=== PATIENT | female | born 1945 ===

== ENCOUNTER → 2018-05-08 14:46 | Emergency (ER) | payer MEDICARE, OTHER ==
[~2018-05-08 14:46] MED LIST: Amoxicillin/Clavulanate TAB* 875 MG PO ONE; Cephalexin CAP* 500 MG PO ONE; HYDROcodone/ACETAMIN 5-325 MG* 1 TAB PO ONE; Lidocaine 2% EPI 1:200000 MPF*10-20 ML VIAL ONE; Tetan/Diph/Pertus SYR(Tdap)* 0.5 ML SYR(BOOSTRIX) use SYR IM ONE
--- OUTSIDE RECORDS SUMMARY | 2018-05-08 15:45 | XMS REPORT | Continuity of Care Document ---
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 Honey Estrada MD Primary Care Physician Unavailable Payers Type Date Identification Numbers Payment Provider Subscriber Effective: 2009 Policy Number: [id number] Medicare Malena Thomason PayID: [id number] [address] [place] [address] Policy Number: [id number] [employer] Malena Thomason PayID: [id number] [address] [place] [address] Advance Directives Description No Information Available Problems Date Description Provider Status Onset: 09/05/2017 Obstructive sleep apnea Maryjo Rodriguez DNP, RN, Active syndrome [employer] Onset: 11/13/2017 Hypoxemia Maryjo Rodriguez DNP, RN, Active [employer] Onset: 11/13/2017 Hypersomnia Maryjo Rodriguez DNP, RN, Active [employer] Onset: 11/13/2017 Body mass index 40+ - severely Maryjo Rodriguez DNP, RN, Active obese [employer] Family History Date Family Member(s) Problem(s) Comments Father due to Heart () - Complications from pacemaker Father Heart Disease Father Pacemaker Mother due to Unknown () Mother Heart Disease Mother Stroke Siblings 2 2 sisters Social History Type Date Description Comments Sex Unknown Marital Status 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 Tobacco Use Start: Unknown Never Smoked Cigarettes Smoking Status Reviewed: 04/30/18 Never Smoked Cigarettes ETOH Use Denies alcohol use Tobacco Use Start: Unknown Patient has never smoked Recreational Drug Use Denies Drug Use Exercise Type/Frequency Exercises sporadically Barn chores every day Allergies, Adverse Reactions, Alerts Date Description Reaction Status Severity Comments 08/29/2017 Sulfa Active 11/13/2017 Alcohol Anaphylaxis, Small amt- stuffy, Active Severe runny nose 08/29/2017 NKDA Inactive Medications Medication Date Status Form Strength Qnty SIG Indications Ordering Provider Pravastatin Active Tablets 10mg take one Unknown Sodium 000 tablet by mouth at bedtime Irbesartan Active Tablets 150mg 1 by mouth Unknown 000 every day It Works Active Powder qd Unknown Greens 000 Oxybutynin Active Tablets ER 5mg 1 by mouth Unknown Chloride ER 000 24HR one time per day Vitamin D3 Active 2000Iu 1 po daily Unknown 000 Immunizations Description No Information Available Vital Signs Date Vital Result Comment 04/30/2018 3:42pm Height 62 inches 5'2" Weight 282.00 lb with shoes Heart Rate 81 /min BP Systolic Sitting 130 mmHg Lue lg cuff BP Diastolic Sitting 90 mmHg Lue lg cuff BP Systolic Standing 136 mmHg Lue lg cuff BP Diastolic Standing 88 mmHg Lue lg cuff Respiratory Rate 17 /min BMI (Body Mass Index) 51.6 kg/m2 03/19/2018 12:49pm Height 62 inches 5'2" Weight 275.00 lb with shoes Heart Rate 80 /min BP Systolic Sitting 134 mmHg lue large cuff BP Diastolic Sitting 80 mmHg lue large cuff BP Systolic Standing 132 mmHg lue large cuff BP Diastolic Standing 80 mmHg lue large cuff BMI (Body Mass Index) 50.3 kg/m2 03/19/2018 12:38pm Height 62 inches 5'2" Weight 276.00 lb with shoes BMI (Body Mass Index) 50.5 kg/m2 01/14/2018 2:25pm Height 62 inches 5'2" Weight 280.12 lb Heart Rate 82 /min BP Systolic Sitting 126 mmHg Left forearm BP Diastolic Sitting 82 mmHg Left forearm Respiratory Rate 16 /min O2 % BldC Oximetry 94 % BMI (Body Mass Index) 51.2 kg/m2 11/13/2017 8:48am Height 62 inches 5'2" Weight 270.50 lb Heart Rate 74 /min BP Systolic Sitting 122 mmHg Lue large cuff BP Diastolic Sitting 80 mmHg Lue large cuff Respiratory Rate 16 /min O2 % BldC Oximetry 94 % On Ra BMI (Body Mass Index) 49.5 kg/m2 09/05/2017 11:17am Height 62 inches 5'2" Weight 271.00 lb Heart Rate 84 /min BP Systolic Sitting 126 mmHg BP Diastolic Sitting 80 mmHg Respiratory Rate 14 /min O2 % BldC Oximetry 95 % BMI (Body Mass Index) 49.6 kg/m2 09/05/2017 11:09am Height 62 inches 5'2" 08/29/2017 7:53am Height 62 inches 5'2" Weight 269.00 lb Heart Rate 76 /min BP Systolic Sitting 116 mmHg BP Diastolic Sitting 80 mmHg Respiratory Rate 14 /min Peak Flow Meter 92 BMI (Body Mass Index) 49.2 kg/m2 Neck Circumference in inches 17 Results Test Date Facility Test Result H/L Range Note CBC Auto Diff 01/14/2018 [facility] White Blood 7.9 10^3/uL N 3.5-10.[address] [place] [address] [phone] Red Blood Count 4.06 10^6/uL N 4.00-5.40 Hemoglobin 13.0 g/dL N 12.0-16.0 Hematocrit 38 % N 35-47 Mean Corpuscular Volume 94 fL N 80-97 Mean Corpuscular Hemoglobin 32 pg High 27-31 Mean Corpuscular HGB Conc 34 g/dL N 31-36 Red Cell Distribution Width 14 % N 10.5-15 Platelet Count 254 10^3/uL N 150-450 Mean Platelet Volume 7.9 um3 N 7.4-10.4 Abs Neutrophils 5.4 10^3/uL N 1.5-7.7 Abs Lymphocytes 1.6 10^3/uL N 1.0-4.8 Abs Monocytes 0.6 10^3/uL N 0-0.8 Abs Eosinophils 0.2 10^3/uL N 0-0.6 Abs Basophils 0.1 10^3/uL N 0-0.2 Abs Nucleated RBC 0 10^3/uL Granulocyte % 68.0 % N 38-83 Lymphocyte % 20.1 % Low 25-47 Monocyte % 8.0 % High 0-7 Eosinophil % 3.1 % N 0-6 Basophil % 0.8 % N 0-2 Nucleated Red Blood Cells % 0.1 Laboratory test 01/14/2018 [facility] Ferritin 71.1 ng/mL N 11 -307 [address] [place] [address] [phone] Iron & Iron Binding 01/14/2018 [facility] Iron 80 g/dL N 50- 212 [address] [place] [address] [phone] Unsaturated Iron Binding 234 g/dL Total Iron Binding Capacity 314 g/dL N 250-450 Transferrin 224 mg/dL N 203-362 % Iron Saturation 25 % N 15-55 Laboratory test 01/14/2018 [facility] Magnesium 2.1 mg/dL N 1.9-2.7 finding [address] [place] [address] [phone] TSH (Thyroid Stim Horm) 1.77 mcIU/mL N 0.34-5.60 Vitamin B12 275 pg/mL N 180-914 1 Vitamin D 1,25 01/14/2018 [facility] Vitamin D 12.4 ng/mL Low 20-50 And Vitamin D,2 [facility] [address] [place] [address] [phone] Vitamin D, 1,25 Dihydroxy 58 pg/mL 18-78 2 1 Normal Range 180 to 914 Indeterminate Range 145 to 180 Deficient Range <145 2 ADDITIONAL INFORMATION This test was developed and its performance characteristics determined by [facility] in a manner consistent with CLIA requirements. This test has not been cleared or approved by the U.S. Food and Drug Administration. Test Performed by: [facility] [address] [place] [address] Procedures Date Code Description Status 04/08/2018 44510 Carotid Doppler,Bilateral Completed 04/01/2018 55697 ECHO Transthoracic, Real-Time 2D With Doppler And Color Completed Flow 04/01/2018 98983 ECHO Transthoracic, Real-Time 2D With Doppler And Color Completed Flow 03/19/2018 42286 EKG Tracing & Interpretation Completed 08/31/2017 31851 Sleep Study Unattended,HRT Rate,Oxygen Sat,Resp Completed Effort/Airflow Encounters Type Date Location Provider Dx Diagnosis Office Visit 03/19/2018 [facility] Mark Veloz R01.1 Cardiac murmur, 1:00p Of Reji Chacon M.D. unspecified R09.89 Oth symptoms and signs involving the circ and resp systems Office Visit 01/14/2018 [facility] G47.33 Obstructive sleep 3:00p [facility] Rodriguez RN, apnea (adult) [facility] (pediatric) G47.14 Hypersomnia due to medical condition R09.02 Hypoxemia R53.83 Other fatigue R01.1 Cardiac murmur, unspecified E66.01 Morbid (severe) obesity due to excess calories Z68.43 Body mass index (BMI) 50-59.9 , adult Office Visit 11/13/2017 [facility] G47.33 Obstructive sleep 9:00a [facility] Rodriguez RN, apnea (adult) [facility] (pediatric) G47.14 Hypersomnia due to medical condition R09.02 Hypoxemia Z68.42 Body mass index (BMI) 45.0-49.9, adult Office Visit 09/05/2017 [facility] G47.33 Obstructive sleep 11:15a [facility] Rodriguez RN, apnea (adult) [facility] (pediatric) G47.14 Hypersomnia due to medical condition R09.02 Hypoxemia Office Visit 08/29/2017 8:00a [facility] Renea, R06.83 [facility] E66.09 Other obesity due to excess calories Z68.42 Body mass index (BMI) 45.0-49.9, adult Office Visit 11/14/2012 2:40p Neurosurgery Jose Juan Esteban 721.3 Spondylosis Services [facility] Reji Almonte M.D. Lumbar W/O Myelopathy Plan of Treatment 04/30/2018 - Mark Chacon M.D.R01.1 Cardiac murmur, unspecifiedFollow up:1 yearRecommendations:Start Aspirin 81 mg a dayI35.0 Nonrheumatic aortic (valve) [id number] Essential (primary) hypertension
--- NOTE | 2018-05-08 18:38 | ED ---
Bite Injury/Animal - HPI Summary HPI Summary: Patient complains of laceration to right cheek and right supraorbital hematoma after being bit by a horse today. Denies any other injuries, pain, symptoms. Tetanus status unclear. Medical history is HTN, HDL. No anti-coag. Bleeding controlled. - History of Current Complaint Chief Complaint: EDLacSutureRecheck Stated Complaint: BIT BY A HORSE Hx Obtained From: Patient Onset of Injury: Happened hours ago Type of Bite: Animal Has Animal Been Immunized?: Yes Severity Initially: Moderate Severity Currently: Moderate Pain Intensity: 7 Pain Scale Used: 0-10 Numeric Character: Abrasion/Laceration Associated Signs And Symptoms: Positive: Negative - Allergies/Home Medications Allergies/Adverse Reactions: Allergies Allergy/AdvReac Type Severity Reaction Status Date / Time alcohol Allergy Anaphylatic Verified 05/08/18 14:50 Shock Sulfa (Sulfonamide Allergy Difficulty Verified 05/08/18 14:50 Antibiotics) Breathing PMH/Surg Hx/FS Hx/Imm Hx Endocrine/Hematology History: Denies: Hx Anticoagulant Therapy Cardiovascular History: Denies: Hx Cardiac Arrest, Hx Pacemaker/ICD History: Denies: Hx Dialysis Sensory History: Denies: Hx Hearing Aid Neurological History: Denies: Hx CVA, Other Neuro Impairments/Disorders Psychiatric History: Denies: Hx Panic Disorder - Cancer History Hx Chemotherapy: No Hx Radiation Therapy: No - Surgical History Surgery Procedure, Year, and Place: D&C - Immunization History Immunizations Up to Date: Yes Infectious Disease History: No Infectious Disease History: Denies: Traveled Outside the [place] in Last 30 Days - Family History Known Family History: Positive: Non-Contributory - Social History Lives: With Family Alcohol Use: None Substance Use Type: Reports: None Smoking Status (MU): Never Smoked Tobacco Review of Systems Constitutional: Negative Eyes: Negative ENT: Negative Cardiovascular: Negative Respiratory: Negative Gastrointestinal: Negative Genitourinary: Negative Musculoskeletal: Negative Skin: Other Neurological: Negative Psychological: Normal All Other Systems Reviewed And Are Negative: Yes Physical Exam - Summary Physical Exam Summary: Right supraorbital hematoma with no apparent deformity, erythema. EOMs intact. No pain with palpation of nose. No intraoral trauma. Laceration along right cheek which does not penetrate through twirl cavity. Neuro exam normal. Patient moving all 4 extremities without any indication of pain. No pain with palpation of head, neck, back, chest wall, abdomen. Triage Information Reviewed: Yes Vital Signs On Initial Exam: Initial Vitals Temp Pulse Resp BP Pulse Ox 98.2 F 97 24 172/97 94 05/08/18 14:47 05/08/18 14:47 05/08/18 14:47 05/08/18 14:47 05/08/18 14:47 Vital Signs Reviewed: Yes Appearance: Positive: Well-Appearing Skin: Positive: Warm Head/Face: Positive: Normal Head/Face Inspection Eyes: Positive: Normal ENT: Positive: Normal ENT inspection Dental: Negative: Dental Fracture @, Bleeding Neck: Positive: Supple Respiratory/Lung Sounds: Positive: Clear to Auscultation Cardiovascular: Positive: Normal Abdomen Description: Positive: Nontender Musculoskeletal: Positive: Normal Neurological: Positive: Normal Psychiatric: Positive: Normal AVPU Assessment: Alert - Kylah Coma Scale Best Eye Response: 4 - Spontaneous Best Motor Response: 6 - Obeys Commands Best Verbal Response: 5 - Oriented Coma Scale Total: 15 Procedures - Laceration/Wound Repair 1 Location: face Description: Irregular Anesthesia: Local, 2.0%, Lido, Epi Length, Depth and Shape: 10cm x 1cm Betadine Prep?: Yes Irrigated w/ Saline (ccs): 1,000 Laceration/Wound Explored: clean Debridement: minimal Number of Sutures: 16 - 6.0 ethilon Layer Closure?: No Sterile Dressing Applied?: No Diagnostics - Vital Signs Vital Signs Temp Pulse Resp BP Pulse Ox 05/08/18 14:47 98.2 F 97 24 172/97 94 - Laboratory Lab Statement: Any lab studies that have been ordered have been reviewed, and results considered in the medical decision making process. Bite Injury Course/Dx - Course Course Of Treatment: Patient complains of laceration to right cheek and right supraorbital hematoma after being bit by a horse today. Denies any other injuries, pain, symptoms. Tetanus status unclear. Medical history is HTN, HDL. No anti-coag. Bleeding controlled. Physical exam:Right supraorbital hematoma with no apparent deformity, erythema. EOMs intact. No pain with palpation of nose. No intraoral trauma. Laceration along right cheek which does not penetrate through twirl cavity. Neuro exam normal. Patient moving all 4 extremities without any indication of pain. No pain with palpation of head, neck, back, chest wall, abdomen. Vital signs within normal limits and stable. CT maxillofacial unremarkable. Laceration sutured. Rx for Augmentin. - Diagnoses Provider Diagnosis: Horse bite, Facial laceration Discharge - Sign-Out/Discharge Documenting (check all that apply): Patient Departure - Discharge Plan Condition: Stable Disposition: HOME Prescriptions: Amoxicillin/Clavulanate TAB* [Augmentin TAB 875*] 875 mg PO BID #20 tab HYDROcodone/ACETAMIN 5-325 MG* [[place] 5-325 TAB*] 1 tab PO BID 3 Days #6 tab MDD 3 tabs Patient Education Materials: Animal Bite (ED), Care For Your Stitches (ED), Facial Laceration (ED) Referrals: Malena Nickerson MD [Primary Care Provider] - Additional Instructions: Sutures out in 5 days. Take antibiotics as directed. May wash with warm running water and soap. Do not submerge underwater. Keep wound clean and dry. Follow-up with primary care. Return to the ED for any new or worsening symptoms. - Billing Disposition and Condition Condition: STABLE Disposition: Home
[2018-05-08 18:58] VITALS: BP 142/69
== END | disposition home or self-care (01) ==
LOC: ED 14:46
DX: S01.411A Laceration without foreign body of right cheek and temporomandibular area, initial encounter (principal); I10 Essential (primary) hypertension; E78.5 Hyperlipidemia, unspecified; W55.11XA Bitten by horse, initial encounter; Y92.9 Unspecified place or not applicable; Z23 Encounter for immunization; Z88.2 Allergy status to sulfonamides
CPT/HCPCS: 12015; 70486; 90471; 90715; 99282; A9270-GY